=== PATIENT | male | born 1985 | race Caucasian/White ===

== ENCOUNTER 2018-01-30 09:51 | Inpatient (IN) | payer MEDICAID ==
[~2018-01-30] VITALS: Ht 185.4 cm; Wt 144.9 kg
[2018-01-30] MEDS ORDERED: OMEP-110 PO (10:25)
[2018-01-30] MEDS ORDERED: ATOR40TA78 PO (10:25)
[2018-01-30] MEDS ORDERED: HYDR25TA6 PO (10:25)
[2018-01-30] MEDS ORDERED: LISI-170 PO (10:25)
[2018-01-30] MEDS ORDERED: CETI10CA PO (10:25)
[2018-01-30 10:53] LABS: MICROSCOPIC INDICATED
[2018-01-30] MEDS ORDERED: SODIUM CHLORIDE 0.9% 1,000ML IVBOLUS ONE ×2 (11:00→12:30)
[2018-01-30] MEDS ORDERED: INSULIN REGULAR 100 UNITS/ML, 3ML VIAL IVPush ONE (11:00)
[2018-01-30] MEDS ORDERED: INSULIN REGULAR 100 UNITS/ML, 3ML VIAL ONE (11:23)
[2018-01-30 11:34] LABS: PH, VENOUS 7.366 pH (7.320-7.420)
[2018-01-30 11:35] LABS: O2 FLOW ROOM AIR L/min
[2018-01-30 11:35] LABS: BASOPHILS # (AUTO) 0.02 x10^3/uL (0-0.1); BASOPHILS % (AUTO) 0 % (0-1); EOSINOPHILS % (AUTO) 2 % (1-7); LYMPHOCYTES # (AUTO) 1.65 x10^3/uL (1-3.4); LYMPHOCYTES % (AUTO) 26 % (22-44); MD NO; MEAN CORPUSCULAR HEMOGLOBIN 29.6 pg (27.5-34.5); MEAN CORPUSCULAR HGB CONC 34.8 g/dL (33.2-36.2); MEAN CORPUSCULAR VOLUME 84.9 fL (81-97); MEAN PLATELET VOLUME 11.1 fL (7.4-10.4); MONOCYTES # (AUTO) 0.53 x10^3/uL (0.2-0.8); MONOCYTES % (AUTO) 9 % (2-9); NEUTROPHILS # (AUTO) 3.94 x10^3/uL (1.8-6.8); NEUTROPHILS % (AUTO) 63 % (42-75); PLATELET COUNT 267 x10^3/uL (130-400); RED BLOOD COUNT 5.97 x10^6/uL (4.38-5.82); RED CELL DISTRIBUTION WIDTH 13.6 % (9.4-14.8)
[2018-01-30 11:52] LABS: ALANINE AMINOTRANSFERASE 94 U/L (12-78); ANION GAP 17 mmol/L (5-15); CALCIUM 8.9 mg/dL (8.5-10.1); CHLORIDE 89 mmol/L (98-107); CREATININE 1.72 mg/dL (0.7-1.3)
[2018-01-30 11:54] LABS: ALKALINE PHOSPHATASE 107 U/L (45-117); BILIRUBIN,TOTAL 1.2 mg/dL (0.2-1.0)
[2018-01-30] MEDS ORDERED: KETOROLAC 30 MG/1 ML ONE (12:02)
[2018-01-30 12:09] LABS: ACETONE, SERUM Moderate(40mg/dL) mg/dL (Negative)
[2018-01-30] MEDS ORDERED: KETOROLAC 30 MG/1 ML IVPush ONE (12:30)
[2018-01-30 13:08] VITALS: BP 120/67
[2018-01-30 14:26] LABS: HEMOGLOBIN A1C 11.3 % (4.2-6.3)
[2018-01-30] MEDS: NICOTINE 14MG/24 HR PATCH.TD24 TD SCH (14:54)
[2018-01-30] MEDS ORDERED: PHARMACY MAY ADJ FOR RENAL FX MC PRN (15:00)
[2018-01-30] MEDS ORDERED: ACETAMINOPHEN 325 MG TABLET PO PRN (15:00)
[2018-01-30] MEDS ORDERED: ONDANSETRON ODT 4 MG PO PRN (15:00)
[2018-01-30] MEDS ORDERED: ONDANSETRON 2MG/ML, 2ML IVPush PRN (15:00)
[2018-01-30] MEDS: POTASSIUM CHLORIDE 20 MEQ in SODIUM CHLORIDE 0.9% 1,000 ML IV SCH ×2 (15:15→21:34)
[2018-01-30] MEDS: INSULIN LISPRO 100 UNITS/ML, PEN SQ-INSULIN SCH ×3 (15:16→23:41)
[2018-01-30] MEDS: ENOXAPARIN 40 MG/0.4 ML SQ SCH (15:16)
[2018-01-30 16:04] LABS: ANION GAP 8 mmol/L (5-15); CALCIUM 8.4 mg/dL (8.5-10.1); CHLORIDE 96 mmol/L (98-107); CREATININE 1.43 mg/dL (0.7-1.3)
[2018-01-30 19:39] VITALS: BP 129/75
[2018-01-30] MEDS ORDERED: ATORVASTATIN 20 MG TABLET PO SCH (21:00)
[2018-01-30] MEDS: OMEPRAZOLE 20 MG CAPSULE.DR PO SCH (21:03)
[2018-01-30] MEDS: INSULIN GLARGINE 100 UNITS/ML, PEN SQ-INSULIN SCH (21:35)
[2018-01-30] MEDS ORDERED: NICOTINE 14MG/24 HR PATCH.TD24 TD ONE (22:30)
[2018-01-31 01:37] VITALS: BP 139/83
[2018-01-31] MEDS: INSULIN LISPRO 100 UNITS/ML, PEN SQ-INSULIN SCH ×6 (04:08→23:00)
[2018-01-31] MEDS: POTASSIUM CHLORIDE 20 MEQ in SODIUM CHLORIDE 0.9% 1,000 ML IV SCH ×2 (04:13→11:05)
[2018-01-31 05:30] LABS: BASOPHILS # (AUTO) 0.01 x10^3/uL (0-0.1); BASOPHILS % (AUTO) 0 % (0-1); EOSINOPHILS # (AUTO) 0.14 x10^3/uL (0-0.4); EOSINOPHILS % (AUTO) 3 % (1-7); LYMPHOCYTES # (AUTO) 1.74 x10^3/uL (1-3.4); LYMPHOCYTES % (AUTO) 34 % (22-44); MD NO; MEAN CORPUSCULAR HEMOGLOBIN 29.6 pg (27.5-34.5); MEAN CORPUSCULAR HGB CONC 34.9 g/dL (33.2-36.2); MEAN CORPUSCULAR VOLUME 84.9 fL (81-97); MEAN PLATELET VOLUME 10.3 fL (7.4-10.4); MONOCYTES % (AUTO) 8 % (2-9); NEUTROPHILS # (AUTO) 2.89 x10^3/uL (1.8-6.8); NEUTROPHILS % (AUTO) 56 % (42-75); PLATELET COUNT 198 x10^3/uL (130-400); RED BLOOD COUNT 5.02 x10^6/uL (4.38-5.82); RED CELL DISTRIBUTION WIDTH 14.5 % (9.4-14.8)
[2018-01-31 05:41] LABS: CHLORIDE 103 mmol/L (98-107)
[2018-01-31 05:54] LABS: ALANINE AMINOTRANSFERASE 101 U/L (12-78); ALBUMIN 3.1 g/dL (3.4-5.0); ALKALINE PHOSPHATASE 74 U/L (45-117); ANION GAP 6 mmol/L (5-15); CHOL/HDL RATIO 10.3; CHOLESTEROL, TOTAL 164 mg/dL (140-239); CREATININE 1.23 mg/dL (0.7-1.3); HDL CHOL % 10 % (26-37); HDL CHOLESTEROL (DIRECT) 16 mg/dL (40-60); LDL CHOLESTEROL,CALCULATED 68 mg/dL (54-169); LDL/HDL RATIO 4.3 (0.5-3.0); TOTAL PROTEIN 6.1 g/dL (6.4-8.2); TRIGLYCERIDES 398 mg/dL (50-200); VLDL CHOLESTEROL 80 mg/dL (0-25)
[2018-01-31 06:51] VITALS: BP 144/80
[2018-01-31] MEDS: INSULIN GLARGINE 100 UNITS/ML, PEN SQ-INSULIN SCH (08:17)
[2018-01-31] MEDS ORDERED: DEXTROSE 4 GM TAB.CHEW PO PRN (09:30)
[2018-01-31] MEDS ORDERED: DEXTROSE 50%, 50ML SYRINGE IVPush PRN (09:30)
[2018-01-31] MEDS ORDERED: GLUCAGON 1 MG IM PRN (09:30)
[2018-01-31 13:38] VITALS: BP 146/80
[2018-01-31] MEDS: ENOXAPARIN 40 MG/0.4 ML SQ SCH (16:34)
[2018-01-31] MEDS: NICOTINE 14MG/24 HR PATCH.TD24 TD SCH (16:34)
[2018-01-31 18:56] VITALS: BP 131/74
[2018-01-31] MEDS: OMEPRAZOLE 20 MG CAPSULE.DR PO SCH (20:41)
[2018-01-31] MEDS: LISINOPRIL 10 MG TABLET PO SCH (20:51)
[2018-01-31] MEDS: SODIUM CHLORIDE FLUSH 10ML SYR IVF SCH (20:52)
[2018-01-31] MEDS ORDERED: INSULIN GLARGINE 100 UNITS/ML, PEN SQ-INSULIN SCH (21:00)
[2018-02-01 01:20] VITALS: BP 127/77
[2018-02-01] MEDS: INSULIN LISPRO 100 UNITS/ML, PEN SQ-INSULIN SCH ×4 (04:26→12:39)
[2018-02-01 05:18] LABS: BASOPHILS # (AUTO) 0.02 x10^3/uL (0-0.1); BASOPHILS % (AUTO) 0 % (0-1); EOSINOPHILS # (AUTO) 0.12 x10^3/uL (0-0.4); EOSINOPHILS % (AUTO) 3 % (1-7); LYMPHOCYTES # (AUTO) 1.53 x10^3/uL (1-3.4); LYMPHOCYTES % (AUTO) 36 % (22-44); MD NO; MEAN CORPUSCULAR HEMOGLOBIN 29.5 pg (27.5-34.5); MEAN CORPUSCULAR HGB CONC 34.6 g/dL (33.2-36.2); MEAN CORPUSCULAR VOLUME 85.4 fL (81-97); MEAN PLATELET VOLUME 9.9 fL (7.4-10.4); MONOCYTES % (AUTO) 7 % (2-9); NEUTROPHILS # (AUTO) 2.25 x10^3/uL (1.8-6.8); NEUTROPHILS % (AUTO) 53 % (42-75); PLATELET COUNT 191 x10^3/uL (130-400); RED BLOOD COUNT 4.89 x10^6/uL (4.38-5.82)
[2018-02-01 05:29] LABS: ANION GAP 9 mmol/L (5-15); CALCIUM 8.2 mg/dL (8.5-10.1); CHLORIDE 107 mmol/L (98-107)
[2018-02-01 05:31] LABS: CREATININE 1.12 mg/dL (0.7-1.3)
[2018-02-01] MEDS: SODIUM CHLORIDE FLUSH 10ML SYR IVF SCH (07:37)
[2018-02-01] MEDS: LISINOPRIL 10 MG TABLET PO SCH (07:37)
[2018-02-01 07:59] VITALS: BP 144/77
[2018-02-01] MEDS ORDERED: INSULIN GLARGINE 100 UNITS/ML, PEN SQ-INSULIN SCH (09:00)
[2018-02-01] MEDS ORDERED: MAGNESIUM SULFATE PMX 2GM/50ML 50 ML IV ONE (10:00)
[2018-02-01] MEDS ORDERED: INSU100I34 SQ (12:15)
[2018-02-01] MEDS ORDERED: INSU100I42 SC (12:15)
[2018-02-01 13:06] VITALS: BP 118/73
[2018-02-01 13:32] LABS: ALBUMIN 2.9 g/dL (3.4-5.0); BILIRUBIN, DIRECT 0.2 mg/dL (0.1-0.2)
[2018-02-01 13:34] LABS: BILIRUBIN,INDIRECT 0.3 mg/dL (0.0-2.0); BILIRUBIN,TOTAL 0.5 mg/dL (0.2-1.0); TOTAL PROTEIN 5.9 g/dL (6.4-8.2)
[2018-02-01] MEDS ORDERED: INSU100C SQ-INSULIN (14:36)
== END 2018-02-01 14:54 | disposition home or self-care (01) | DRG 637 ==
LOC: ED 11:40 → EDIP 12:01 → 3NE 12:40 → DCLOUNGE 02-01 14:32
PROVIDERS: ADMIT Hospitalist; ATTEND Hospitalist
DX: E11.10 Type 2 diabetes mellitus with ketoacidosis without coma (principal); N17.0 Acute kidney failure with tubular necrosis; E87.1 Hypo-osmolality and hyponatremia; Z68.41 Body mass index [BMI] 40.0-44.9, adult; E66.01 Morbid (severe) obesity due to excess calories; E78.5 Hyperlipidemia, unspecified; F17.200 Nicotine dependence, unspecified, uncomplicated; K21.9 Gastro-esophageal reflux disease without esophagitis; I10 Essential (primary) hypertension; Z83.3 Family history of diabetes mellitus; Z82.49 Family history of ischemic heart disease and other diseases of the circulatory system; Z71.6 Tobacco abuse counseling
CPT/HCPCS: 71045; 76700; 80048; 80053; 80061; 80076; 81001; 82010; 82803; 82962; 83036; 83735; 84100; 84443; 85025; 93005; 96374; 96375; 99291; G0378; J1650; J1885; J3480; J1815; J3475; J7030